=== PATIENT | female | born 1955 | race Caucasian/White ===

== ENCOUNTER 2016-12-15 07:26 | Inpatient (IN) ==
[2016-12-15 12:26] LABS: Basophils % 0.1 %; Hematocrit 40.4 % (35.3-44.9); Hemoglobin 13.4 g/dL (11.5-15.4); Immature Granulocytes % 0.7 % (0-4); Lymphocytes # 0.9 K/mcL (0.6-4.6); Lymphocytes % 5.5 %; Mean Corpuscular HGB Conc 33.2 g/dL (31.6-35.5); Mean Corpuscular Hemoglobin 27.6 pg (28.0-33.3); Mean Corpuscular Volume 83.1 fL (83.0-100.0); Mean Platelet Volume 10.4 fL (9.4-12.4); Monocytes # 0.1 K/mcL (0.0-1.3); Monocytes % 0.5 %; Neutrophils # 14.4 K/mcL (1.6-8.9); Platelet Count 286 K/mcL (140-400); Red Blood Count 4.86 M/mcL (3.82-4.97); Red Cell Distribution Width 12.7 % (11.5-14.5); Segmented Neutrophils % 93.2 %
[2016-12-15 12:33] LABS: INR 1.1; Prothrombin Time 11.8 Seconds (9.4-12.1)
[2016-12-15 12:35] LABS: Activated Partial Thrombo Time 29.4 Seconds (26.0-36.0)
[2016-12-15 12:42] LABS: BUN/Creatinine Ratio 20 (6-26); Blood Urea Nitrogen 21 mg/dL (7-20); Calcium 9.6 mg/dL (8.6-10.8); Carbon Dioxide 22 mEq/L (19-29); Chloride 106 mEq/L (98-109); Chol/HDL Ratio 2.7 (0-4.9); Cholesterol 144 mg/dL (< 200); Glucose 399 mg/dL (70-99); HDL Cholesterol 53 mg/dL (40-59); LDL Cholesterol,Calculated 64 mg/dL (0-99); Osmolality,Calculated 306 (280-300); Potassium 4.1 mEq/L (3.5-4.5); Sodium 138 mEq/L (136-145); Triglycerides 135 mg/dL (< 150); eGFR For African Americans > 60 (> 60); eGFR For Non-African Americans 53 (> 60)
[2016-12-15 12:57] LABS: Hemoglobin A1C 9.9 %
[2016-12-15 14:25] LABS: Bilirubin,Urine Negative (Negative); Blood,Urine Large (Negative); Clarity,Urine Clear (Clear); Color,Urine Yellow (Yellow); Glucose,Urine (UA) >=1000 mg/dL (Normal); Ketones,Urine Negative (Negative); Leukocyte Esterase,Urine Negative (Negative); Nitrite,Urine Negative (Negative); PH,Urine 5.5 pH Units (5.0-8.0); Protein,Urine 100 mg/dL (Neg-Trace); Specific Gravity,Urine > 1.030 (1.010-1.025); Urobilinogen,Urine Normal (Normal)
[2016-12-15 14:27] LABS: Bacteria,Urine None Seen per hpf (None-Few); Hyaline Casts,Urine None Seen per lpf (None-Few); Squamous Epithelial Cell,Urine Many per lpf (None-Few); WBC,Urine 0-3 per hpf (0-3)
[2016-12-16 12:19] LABS: ABG Base Excess 0.5 mEq/L (-2.0 to 3.0); ABG HCO3 24.6 mEQ/L (21-27); ABG Oxygen Saturation 95 % (95-98); ABG PCO2 37 mmHg (35-45); ABG PH 7.43 pH Units (7.32-7.45); ABG PO2 72 mmHg (85-104); ABG TCO2 25.7 mEq/L (20-26); Basophils % 0.2 %; Eosinophils # 0.1 K/mcL (0.0-0.6); Eosinophils % 0.9 %; Hematocrit 34.8 % (35.3-44.9); Hemoglobin 11.9 g/dL (11.5-15.4); Immature Granulocytes % 1.4 % (0-4); Lymphocytes # 2.8 K/mcL (0.6-4.6); Lymphocytes % 18.6 %; Mean Corpuscular HGB Conc 34.2 g/dL (31.6-35.5); Mean Corpuscular Hemoglobin 28.1 pg (28.0-33.3); Mean Corpuscular Volume 82.1 fL (83.0-100.0); Mean Platelet Volume 10.4 fL (9.4-12.4); Monocytes # 0.2 K/mcL (0.0-1.3); Monocytes % 1.4 %; Neutrophils # 11.8 K/mcL (1.6-8.9); Red Blood Count 4.24 M/mcL (3.82-4.97); Red Cell Distribution Width 13.5 % (11.5-14.5); Segmented Neutrophils % 77.5 %
[2016-12-16 12:20] LABS: Blood Gas FiO2 40 %; Platelet Count 87 K/mcL (140-400)
[2016-12-16 12:27] LABS: INR 1.6
[2016-12-16 12:28] LABS: BUN/Creatinine Ratio 33 (6-26); Blood Urea Nitrogen 26 mg/dL (7-20); Calcium 8.3 mg/dL (8.6-10.8); Carbon Dioxide 23 mEq/L (19-29); Chloride 106 mEq/L (98-109); Glucose 139 mg/dL (70-99); Magnesium 2.7 mg/dL (1.6-2.6); Osmolality,Calculated 293 (280-300); Potassium 3.2 mEq/L (3.5-4.5); Prothrombin Time 17.6 Seconds (9.4-12.1); Sodium 138 mEq/L (136-145); eGFR For African Americans > 60 (> 60); eGFR For Non-African Americans > 60 (> 60)
[2016-12-16 12:49] LABS: Platelet Estimate Decreased (Normal)
[2016-12-16 14:41] LABS: ABG PCO2 49 mmHg (35-45); ABG PH 7.37 pH Units (7.32-7.45); ABG PO2 265 mmHg (85-104)
[2016-12-16 14:42] LABS: ABG Base Excess 2.4 mEq/L (-2.0 to 3.0); ABG Glucose 128 mg/dL (60-95); ABG HCO3 28.3 mEQ/L (21-27); ABG Hematocrit 36 % (35-51); ABG Ionized Calcium 1.31 mmol/L (1.15-1.35); ABG Oxygen Saturation 100 % (95-98); ABG TCO2 29.8 mEq/L (20-26)
[2016-12-16 14:43] LABS: ABG PCO2 33 mmHg (35-45); ABG PH 7.45 pH Units (7.32-7.45); ABG PO2 138 mmHg (85-104)
[2016-12-16 14:44] LABS: ABG Base Excess -0.8 mEq/L (-2.0 to 3.0); ABG Glucose 126 mg/dL (60-95); ABG HCO3 22.9 mEQ/L (21-27); ABG Hematocrit 26 % (35-51); ABG Ionized Calcium 1.02 mmol/L (1.15-1.35); ABG Oxygen Saturation 99 % (95-98); ABG TCO2 23.9 mEq/L (20-26)
[2016-12-16 14:46] LABS: ABG Base Excess 5.2 mEq/L (-2.0 to 3.0); ABG Glucose 194 mg/dL (60-95); ABG HCO3 28.4 mEQ/L (21-27); ABG Hematocrit 19 % (35-51); ABG Ionized Calcium 0.95 mmol/L (1.15-1.35); ABG Oxygen Saturation 100 % (95-98); ABG PCO2 34 mmHg (35-45); ABG PH 7.53 pH Units (7.32-7.45); ABG PO2 477 mmHg (85-104); ABG TCO2 29.4 mEq/L (20-26)
[2016-12-16 14:48] LABS: ABG Base Excess 2.9 mEq/L (-2.0 to 3.0); ABG HCO3 25.9 mEQ/L (21-27); ABG PCO2 31 mmHg (35-45); ABG PH 7.53 pH Units (7.32-7.45); ABG PO2 428 mmHg (85-104); ABG TCO2 26.9 mEq/L (20-26)
[2016-12-16 14:49] LABS: ABG Glucose 199 mg/dL (60-95); ABG Hematocrit 18 % (35-51); ABG Ionized Calcium 0.95 mmol/L (1.15-1.35); ABG Oxygen Saturation 100 % (95-98)
[2016-12-16 14:50] LABS: ABG PCO2 36 mmHg (35-45); ABG PH 7.42 pH Units (7.32-7.45); ABG PO2 118 mmHg (85-104)
[2016-12-16 14:51] LABS: ABG Base Excess -0.9 mEq/L (-2.0 to 3.0); ABG Glucose 156 mg/dL (60-95); ABG HCO3 23.4 mEQ/L (21-27); ABG Hematocrit 25 % (35-51); ABG Oxygen Saturation 99 % (95-98); ABG TCO2 24.5 mEq/L (20-26)
[2016-12-16 14:52] LABS: ABG Ionized Calcium 1.29 mmol/L (1.15-1.35)
[2016-12-16 16:21] LABS: Basophils # 0.1 K/mcL (0.0-0.2); Basophils % 0.3 %; Eosinophils % 0.2 %; Hematocrit 37.9 % (35.3-44.9); Hemoglobin 12.9 g/dL (11.5-15.4); Immature Granulocytes % 1.3 % (0-4); Immature Platelets 4.5 % (1.1-6.1); Lymphocytes # 2.4 K/mcL (0.6-4.6); Lymphocytes % 13.5 %; Mean Corpuscular Hemoglobin 27.7 pg (28.0-33.3); Mean Corpuscular Volume 81.3 fL (83.0-100.0); Mean Platelet Volume 10.4 fL (9.4-12.4); Monocytes # 1.3 K/mcL (0.0-1.3); Monocytes % 7.3 %; Neutrophils # 13.6 K/mcL (1.6-8.9); Platelet Count 139 K/mcL (140-400); Red Blood Count 4.66 M/mcL (3.82-4.97); Red Cell Distribution Width 13.8 % (11.5-14.5); Segmented Neutrophils % 77.4 %
[2016-12-16 16:23] LABS: ABG Base Excess 0.8 mEq/L (-2.0 to 3.0); ABG HCO3 25.3 mEQ/L (21-27); ABG Oxygen Saturation 94 % (95-98); ABG PCO2 39 mmHg (35-45); ABG PO2 70 mmHg (85-104); ABG TCO2 26.5 mEq/L (20-26)
[2016-12-16 16:25] LABS: ABG PH 7.42 pH Units (7.32-7.45); Blood Gas FiO2 30 %
[2016-12-16 16:39] LABS: BUN/Creatinine Ratio 30 (6-26); Calcium 8.3 mg/dL (8.6-10.8); Carbon Dioxide 22 mEq/L (19-29); Chloride 106 mEq/L (98-109); Glucose 165 mg/dL (70-99); Magnesium 2.4 mg/dL (1.6-2.6); Osmolality,Calculated 295 (280-300); Potassium 3.6 mEq/L (3.5-4.5); Sodium 138 mEq/L (136-145); eGFR For African Americans > 60 (> 60); eGFR For Non-African Americans > 60 (> 60)
[2016-12-16 16:40] LABS: Blood Urea Nitrogen 27 mg/dL (7-20)
[2016-12-16 20:39] LABS: ABG Base Excess -2.3 mEq/L (-2.0 to 3.0); ABG HCO3 23.7 mEQ/L (21-27); ABG Oxygen Saturation 93 % (95-98); ABG PCO2 45 mmHg (35-45); ABG PH 7.33 pH Units (7.32-7.45); ABG PO2 71 mmHg (85-104); ABG TCO2 25.1 mEq/L (20-26)
[2016-12-16 20:45] LABS: Blood Gas FiO2 30 %
[2016-12-16 23:00] LABS: ABG Base Excess -0.2 mEq/L (-2.0 to 3.0); ABG HCO3 26.3 mEQ/L (21-27); ABG Oxygen Saturation 90 % (95-98); ABG PCO2 51 mmHg (35-45); ABG PH 7.32 pH Units (7.32-7.45); ABG PO2 64 mmHg (85-104); ABG TCO2 27.9 mEq/L (20-26)
[2016-12-16 23:01] LABS: Blood Gas FiO2 28 %
[2016-12-17 07:56] LABS: BUN/Creatinine Ratio 26 (6-26); Blood Urea Nitrogen 24 mg/dL (7-20); Calcium 7.9 mg/dL (8.6-10.8); Carbon Dioxide 21 mEq/L (19-29); Chloride 107 mEq/L (98-109); Glucose 126 mg/dL (70-99); Magnesium 2.1 mg/dL (1.6-2.6); Osmolality,Calculated 294 (280-300); Sodium 139 mEq/L (136-145); eGFR For African Americans > 60 (> 60); eGFR For Non-African Americans > 60 (> 60)
[2016-12-17 08:30] LABS: INR 1.2; Prothrombin Time 12.9 Seconds (9.4-12.1)
[2016-12-17 08:31] LABS: Activated Partial Thrombo Time 24.9 Seconds (26.0-36.0)
[2016-12-17 08:32] LABS: Basophils % 0.1 %; Eosinophils % 0.1 %; Hemoglobin 11.8 g/dL (11.5-15.4); Immature Granulocytes % 0.7 % (0-4); Lymphocytes % 13.8 %; Mean Corpuscular HGB Conc 33.7 g/dL (31.6-35.5); Mean Corpuscular Hemoglobin 28.5 pg (28.0-33.3); Mean Corpuscular Volume 84.5 fL (83.0-100.0); Mean Platelet Volume 10.9 fL (9.4-12.4); Monocytes # 0.9 K/mcL (0.0-1.3); Neutrophils # 9.9 K/mcL (1.6-8.9); Platelet Count 127 K/mcL (140-400); Red Blood Count 4.14 M/mcL (3.82-4.97); Segmented Neutrophils % 78.3 %
[2016-12-17 08:33] LABS: Lymphocytes # 1.8 K/mcL (0.6-4.6)
[2016-12-18 03:27] LABS: BUN/Creatinine Ratio 28 (6-26); Blood Urea Nitrogen 25 mg/dL (7-20); Calcium 8.2 mg/dL (8.6-10.8); Carbon Dioxide 21 mEq/L (19-29); Chloride 107 mEq/L (98-109); Glucose 236 mg/dL (70-99); Osmolality,Calculated 292 (280-300); Sodium 135 mEq/L (136-145); eGFR For African Americans > 60 (> 60); eGFR For Non-African Americans > 60 (> 60)
[2016-12-18 03:31] LABS: Potassium 4.3 mEq/L (3.5-4.5)
[2016-12-18 03:36] LABS: Basophils % 0.2 %; Eosinophils # 0.1 K/mcL (0.0-0.6); Eosinophils % 0.6 %; Hemoglobin 11.4 g/dL (11.5-15.4); Immature Granulocytes % 0.6 % (0-4); Lymphocytes # 1.8 K/mcL (0.6-4.6); Lymphocytes % 13.9 %; Mean Corpuscular HGB Conc 32.6 g/dL (31.6-35.5); Mean Corpuscular Hemoglobin 27.9 pg (28.0-33.3); Mean Corpuscular Volume 85.6 fL (83.0-100.0); Mean Platelet Volume 11.2 fL (9.4-12.4); Monocytes % 7.8 %; Neutrophils # 9.7 K/mcL (1.6-8.9); Platelet Count 114 K/mcL (140-400); Red Blood Count 4.09 M/mcL (3.82-4.97); Red Cell Distribution Width 14.1 % (11.5-14.5); Segmented Neutrophils % 76.9 %
[2016-12-19 04:33] LABS: Basophils % 0.3 %; Eosinophils # 0.2 K/mcL (0.0-0.6); Eosinophils % 1.5 %; Hematocrit 35.2 % (35.3-44.9); Hemoglobin 11.5 g/dL (11.5-15.4); Immature Granulocytes % 0.4 % (0-4); Lymphocytes # 1.7 K/mcL (0.6-4.6); Lymphocytes % 14.5 %; Mean Corpuscular HGB Conc 32.7 g/dL (31.6-35.5); Mean Corpuscular Hemoglobin 27.9 pg (28.0-33.3); Mean Corpuscular Volume 85.4 fL (83.0-100.0); Mean Platelet Volume 11.2 fL (9.4-12.4); Monocytes # 0.9 K/mcL (0.0-1.3); Monocytes % 7.4 %; Neutrophils # 8.7 K/mcL (1.6-8.9); Platelet Count 115 K/mcL (140-400); Red Blood Count 4.12 M/mcL (3.82-4.97); Red Cell Distribution Width 13.4 % (11.5-14.5); Segmented Neutrophils % 75.9 %
[2016-12-19 05:00] LABS: BUN/Creatinine Ratio 24 (6-26); Blood Urea Nitrogen 24 mg/dL (7-20); Calcium 8.6 mg/dL (8.6-10.8); Carbon Dioxide 24 mEq/L (19-29); Chloride 108 mEq/L (98-109); Glucose 109 mg/dL (70-99); Osmolality,Calculated 289 (280-300); Potassium 4.2 mEq/L (3.5-4.5); Sodium 137 mEq/L (136-145); eGFR For African Americans > 60 (> 60); eGFR For Non-African Americans 55 (> 60)
[2016-12-20 01:46] LABS: Basophils % 0.3 %; Eosinophils # 0.3 K/mcL (0.0-0.6); Eosinophils % 2.1 %; Hematocrit 34.9 % (35.3-44.9); Hemoglobin 11.2 g/dL (11.5-15.4); Immature Granulocytes % 0.5 % (0-4); Lymphocytes # 1.2 K/mcL (0.6-4.6); Lymphocytes % 9.6 %; Mean Corpuscular HGB Conc 32.1 g/dL (31.6-35.5); Mean Corpuscular Hemoglobin 27.6 pg (28.0-33.3); Mean Platelet Volume 11.4 fL (9.4-12.4); Monocytes # 0.9 K/mcL (0.0-1.3); Monocytes % 7.8 %; Neutrophils # 9.6 K/mcL (1.6-8.9); Platelet Count 150 K/mcL (140-400); Red Blood Count 4.06 M/mcL (3.82-4.97); Red Cell Distribution Width 13.6 % (11.5-14.5); Segmented Neutrophils % 79.7 %
[2016-12-20 01:59] LABS: Calcium 8.6 mg/dL (8.6-10.8); Potassium 4.6 mEq/L (3.5-4.5)
[2016-12-21 04:21] LABS: Basophils % 0.4 %; Eosinophils # 0.4 K/mcL (0.0-0.6); Eosinophils % 4.4 %; Hematocrit 34.8 % (35.3-44.9); Hemoglobin 11.5 g/dL (11.5-15.4); Immature Granulocytes % 0.6 % (0-4); Lymphocytes # 1.5 K/mcL (0.6-4.6); Lymphocytes % 15.6 %; Mean Corpuscular Hemoglobin 28.3 pg (28.0-33.3); Mean Corpuscular Volume 85.7 fL (83.0-100.0); Mean Platelet Volume 11.2 fL (9.4-12.4); Monocytes # 0.8 K/mcL (0.0-1.3); Monocytes % 8.8 %; Neutrophils # 6.6 K/mcL (1.6-8.9); Platelet Count 183 K/mcL (140-400); Red Blood Count 4.06 M/mcL (3.82-4.97); Red Cell Distribution Width 13.2 % (11.5-14.5); Segmented Neutrophils % 70.2 %
[2016-12-21 04:33] LABS: Calcium 8.9 mg/dL (8.6-10.8); Potassium 4.2 mEq/L (3.5-4.5)
[2016-12-22 05:45] LABS: Hematocrit 37.8 % (35.3-44.9); Hemoglobin 12.5 g/dL (11.5-15.4); Mean Corpuscular HGB Conc 33.1 g/dL (31.6-35.5); Mean Corpuscular Hemoglobin 27.3 pg (28.0-33.3); Mean Corpuscular Volume 82.5 fL (83.0-100.0); Mean Platelet Volume 10.7 fL (9.4-12.4); Platelet Count 242 K/mcL (140-400); Red Blood Count 4.58 M/mcL (3.82-4.97); Red Cell Distribution Width 13.2 % (11.5-14.5)
[2016-12-22 05:56] LABS: BUN/Creatinine Ratio 23 (6-26); Blood Urea Nitrogen 25 mg/dL (7-20); Calcium 9.3 mg/dL (8.6-10.8); Carbon Dioxide 25 mEq/L (19-29); Chloride 99 mEq/L (98-109); Glucose 204 mg/dL (70-99); Osmolality,Calculated 284 (280-300); Potassium 4.3 mEq/L (3.5-4.5); Sodium 132 mEq/L (136-145); eGFR For African Americans > 60 (> 60); eGFR For Non-African Americans 50 (> 60)
[2016-12-23 05:03] LABS: Basophils # 0.1 K/mcL (0.0-0.2); Basophils % 0.6 %; Eosinophils # 0.4 K/mcL (0.0-0.6); Eosinophils % 4.3 %; Hematocrit 34.3 % (35.3-44.9); Hemoglobin 11.5 g/dL (11.5-15.4); Immature Granulocytes % 1.1 % (0-4); Lymphocytes # 1.6 K/mcL (0.6-4.6); Lymphocytes % 15.6 %; Mean Corpuscular HGB Conc 33.5 g/dL (31.6-35.5); Mean Corpuscular Hemoglobin 28.1 pg (28.0-33.3); Mean Corpuscular Volume 83.9 fL (83.0-100.0); Mean Platelet Volume 10.5 fL (9.4-12.4); Monocytes # 0.8 K/mcL (0.0-1.3); Monocytes % 8.2 %; Neutrophils # 7.2 K/mcL (1.6-8.9); Platelet Count 261 K/mcL (140-400); Red Blood Count 4.09 M/mcL (3.82-4.97); Red Cell Distribution Width 13.1 % (11.5-14.5); Segmented Neutrophils % 70.2 %
[2016-12-23 05:11] LABS: BUN/Creatinine Ratio 24 (6-26); Blood Urea Nitrogen 24 mg/dL (7-20); Calcium 8.8 mg/dL (8.6-10.8); Carbon Dioxide 28 mEq/L (19-29); Chloride 101 mEq/L (98-109); Glucose 158 mg/dL (70-99); Osmolality,Calculated 287 (280-300); Potassium 4.3 mEq/L (3.5-4.5); Sodium 135 mEq/L (136-145); eGFR For African Americans > 60 (> 60); eGFR For Non-African Americans 56 (> 60)
[2016-12-24 10:59] VITALS: BP 144/70
== END 2016-12-24 11:14 | DRG 166 ==
LOC: INVDIALAB 07:26 → ICNU 11:46 → 2NNU 12-19 12:12
PROVIDERS: ADMIT Thoracic Surgery (Cardiothoracic Vascular Surgery); ATTEND Thoracic Surgery (Cardiothoracic Vascular Surgery)

== ENCOUNTER 2021-09-12 21:00 | Inpatient (IN) ==
[2021-09-12] MEDS ORDERED: Naloxone 0.4 MG/ML INJ IVP PRN (23:04)
[2021-09-12] MEDS ORDERED: D5% in 0.45% NACL 1,000 ML IVC PRN (23:06)
[2021-09-12] MEDS ORDERED: *HR* Dextrose 50 % in Water (Syg) 50 ML SYRINGE IVP PRN (23:06)
[2021-09-12] MEDS ORDERED: Insulin LISPRO 300 UNITS/3 ML VIAL SUBQ PRN (23:06)
[2021-09-12] MEDS ORDERED: Acetaminophen IV 1,000 MG/100 ML BAG IVPB ONE (23:44)
[2021-09-12] MEDS ORDERED: VANCOMYCIN IVPB SCH (23:45)
[2021-09-12] MEDS ORDERED: SODIUM CHLORIDE 0.9% IVPB SCH (23:45)
[2021-09-13] MEDS ORDERED: Vancomycin 1,250 MG/262.5 ML IV.SOLN IVPB ONE (00:01)
[2021-09-13] MEDS: 0.9 % Sodium Chloride 1,000 ML IVC SCH ×9 (00:34→11:46)
[2021-09-13] MEDS: Piperacillin/Tazobactam 3.375 GM in 0.9 % Sodium Chloride Mini Bag 100 ML IVPB SCH ×4 (00:37→23:34)
[2021-09-13 01:04] LABS: Magnesium 1.8 mg/dL (1.6-2.6); Phosphorous 1.4 mg/dL (2.7-4.5)
[2021-09-13 01:09] LABS: Potassium 3.6 mEq/L (3.5-5.1)
[2021-09-13] MEDS ORDERED: *HR* Heparin 5,000 UNIT/ML VIAL IVP ONE (01:32)
[2021-09-13] MEDS ORDERED: Perflutren Lipid Microsphere 1.3 ML in 0.9 % Sodium Chloride 8.7 ML IVP PRN (01:32)
[2021-09-13] MEDS ORDERED: *HR* Heparin 5,000 UNIT/ML VIAL IVP PRN ×2 (01:32)
[2021-09-13] MEDS: D5% in 0.45% NACL w KCl 20 MEQ/1,000 ML MLS IVC PRN ×2 (01:51→06:12)
[2021-09-13] MEDS ORDERED: Albumin 25% 25gram/100mL 25 GM/100 ML IV.SOLN IVPB ONE (02:12)
[2021-09-13] MEDS ORDERED: 0.9 % Sodium Chloride 500 ML IVC ONE (02:18)
[2021-09-13 03:24] LABS: Basophils % 0.4 %; Eosinophils % 0.1 %; Hematocrit 24.3 % (35.3-44.9); Hemoglobin 7.7 g/dL (11.5-15.4); Immature Granulocytes % 0.4 % (0-4); Lymphocytes # 0.7 K/mcL (0.6-4.6); Lymphocytes % 7.9 %; Mean Corpuscular HGB Conc 31.7 g/dL (31.6-35.5); Mean Corpuscular Hemoglobin 25.9 pg (28.0-33.3); Mean Corpuscular Volume 81.8 fL (83.0-100.0); Mean Platelet Volume 12.1 fL (9.4-12.4); Monocytes # 0.7 K/mcL (0.0-1.3); Monocytes % 8.2 %; Neutrophils # 7.1 K/mcL (1.6-8.9); Platelet Count 164 K/mcL (140-400); Red Blood Count 2.97 M/mcL (3.82-4.97); Red Cell Distribution Width 13.8 % (11.5-14.5); White Blood Count 8.6 K/mcL (4.3-11.1)
[2021-09-13 03:36] LABS: Alanine Aminotransferase 8 Units/L (7-52); Albumin 2.5 g/dL (3.5-5.7); Albumin/Globulin Ratio 0.9 (1.1-2.2); Alkaline Phosphatase 76 Units/L (34-104); Aspartate Amino Transferase 12 Units/L (13-39); Bilirubin,Direct 0.1 mg/dL (0.0-0.2); Bilirubin,Indirect 0.2 mg/dL (0.0-1.0); Bilirubin,Total 0.3 mg/dL (0.3-1.0); Globulin 2.8 g/dL (2.4-3.5); Total Protein 5.3 g/dL (6.4-8.9)
[2021-09-13 04:50] LABS: VBG Ionized Calcium 1.14 mmol/L (1.15-1.35)
[2021-09-13 04:59] LABS: INR 1.2; Prothrombin Time 13.4 Seconds (9.4-12.1)
[2021-09-13 05:12] LABS: Calcium 7.8 mg/dL (8.6-10.3); Potassium 3.8 mEq/L (3.5-5.1)
[2021-09-13] MEDS: Heparin 25,000UNIT/250ML 1/2NS 25,000 UNIT/250 ML IV.SOLN IVC SCH (05:22)
[2021-09-13 06:32] LABS: Folate 7.1 ng/mL (3.0-16.0)
[2021-09-13 06:33] LABS: Ferritin 221 ng/mL (10-120); Iron < 10 mcg/dL (50-170)
[2021-09-13] MEDS ORDERED: *HR* Dextrose 50 % in Water (Syg) 50 ML SYRINGE IVP PRN (07:35)
[2021-09-13] MEDS ORDERED: Dextrose Gel 15 GM/37.5 ML TUBE PO PRN ×2 (07:35)
[2021-09-13] MEDS ORDERED: Insulin DETEMIR 100 UNIT/ML X5UNITS SUBQ ONE (07:35)
[2021-09-13] MEDS ORDERED: D5% in Water 1,000 ML IVC PRN (07:35)
[2021-09-13] MEDS ORDERED: Calcium Gluconate 1gm/50mL 1 GM/50 ML BAG IVPB ONE (07:41)
[2021-09-13] MEDS: Insulin LISPRO 300 UNITS/3 ML VIAL SUBQ SCH ×5 (08:20→16:17)
[2021-09-13] MEDS ORDERED: cefTRIAXone 1,000 MG in Water for inj. (sterile) 10 ML IVP SCH (09:00)
[2021-09-13] MEDS: Albumin 25% 25gram/100mL 25 GM/100 ML IV.SOLN IVPB SCH ×2 (11:31→16:18)
[2021-09-13] MEDS ORDERED: 0.9 % Sodium Chloride 1,000 ML IVC SCH (13:00)
[2021-09-13] MEDS ORDERED: Acetaminophen 325 MG TABLET PO PRN (18:57)
[2021-09-13] MEDS: Insulin DETEMIR 100 UNIT/ML X5UNITS SUBQ SCH (20:19)
[2021-09-14 00:37] LABS: Hemoglobin 7.5 g/dL (11.5-15.4); Mean Corpuscular HGB Conc 31.3 g/dL (31.6-35.5); Mean Corpuscular Hemoglobin 26.6 pg (28.0-33.3); Mean Corpuscular Volume 85.1 fL (83.0-100.0); Mean Platelet Volume 11.9 fL (9.4-12.4); Platelet Count 167 K/mcL (140-400); Red Blood Count 2.82 M/mcL (3.82-4.97); Red Cell Distribution Width 14.6 % (11.5-14.5); White Blood Count 7.2 K/mcL (4.3-11.1)
[2021-09-14 01:01] LABS: Calcium 7.4 mg/dL (8.6-10.3); Potassium 4.7 mEq/L (3.5-5.1)
[2021-09-14 01:11] LABS: Troponin I 0.7 ng/mL (< 0.04)
[2021-09-14] MEDS: Albumin 25% 25gram/100mL 25 GM/100 ML IV.SOLN IVPB SCH ×3 (03:22→18:12)
[2021-09-14] MEDS: Heparin 25,000UNIT/250ML 1/2NS 25,000 UNIT/250 ML IV.SOLN IVC SCH ×2 (03:25→08:41)
[2021-09-14] MEDS ORDERED: Calcium Gluconate 1gm/50mL 1 GM/50 ML BAG IVPB ONE (07:17)
[2021-09-14] MEDS: Insulin LISPRO 300 UNITS/3 ML VIAL SUBQ SCH ×6 (08:25→17:00)
[2021-09-14] MEDS: Piperacillin/Tazobactam 3.375 GM in 0.9 % Sodium Chloride Mini Bag 100 ML IVPB SCH ×2 (08:39→15:59)
[2021-09-14 10:36] LABS: Bilirubin,Urine Negative (Negative); Blood,Urine Large (Negative); Budding Yeast,Urine Many per hpf (None Seen); Clarity,Urine Turbid (Clear); Color,Urine Yellow (Yellow); Glucose,Urine (UA) 300 mg/dL (Normal); Granular Casts,Urine Few per lpf (None Seen); Ketones,Urine Negative (Negative); Leukocyte Esterase,Urine Large (Negative); Nitrite,Urine Negative (Negative); Protein,Urine 200 mg/dL (Neg-Trace); Specific Gravity,Urine 1.016 (1.010-1.025); Squamous Epithelial Cell,Urine Few per hpf (None-Few); Urobilinogen,Urine Normal (Normal); WBC,Urine 50-100 per hpf (0-3)
[2021-09-14] MEDS: Insulin DETEMIR 100 UNIT/ML X5UNITS SUBQ SCH (20:15)
[2021-09-15] MEDS: Albumin 25% 25gram/100mL 25 GM/100 ML IV.SOLN IVPB SCH ×3 (02:14→17:51)
[2021-09-15 02:23] LABS: Hematocrit 23.6 % (35.3-44.9); Hemoglobin 7.2 g/dL (11.5-15.4); Mean Corpuscular HGB Conc 30.5 g/dL (31.6-35.5); Mean Corpuscular Hemoglobin 25.7 pg (28.0-33.3); Mean Corpuscular Volume 84.3 fL (83.0-100.0); Platelet Count 169 K/mcL (140-400); Red Cell Distribution Width 15.2 % (11.5-14.5); White Blood Count 8.4 K/mcL (4.3-11.1)
[2021-09-15 02:27] LABS: Calcium 8.1 mg/dL (8.6-10.3)
[2021-09-15] MEDS ORDERED: Piperacillin/Tazobactam 3.375 GM in 0.9 % Sodium Chloride Mini Bag 100 ML IVPB SCH (04:00)
[2021-09-15] MEDS ORDERED: 0.9 % Sodium Chloride 1,000 ML ONE (08:12)
[2021-09-15] MEDS: Insulin LISPRO 300 UNITS/3 ML VIAL SUBQ SCH ×6 (08:14→16:19)
[2021-09-15] MEDS ORDERED: Nitroglycerin 0.4 MG TAB.SUBL SL PRN (08:26)
[2021-09-15] MEDS: 0.9 % Sodium Chloride 1,000 ML IVC SCH ×2 (08:48→19:43)
[2021-09-15] MEDS: Aspirin 81 MG TAB.CHEW PO SCH (10:47)
[2021-09-15] MEDS ORDERED: D5% in Water 1,000 ML IVC PRN (13:36)
[2021-09-15] MEDS ORDERED: cefTRIAXone 1,000 MG in 0.9 % Sodium Chloride Mini Bag 100 ML IVPB SCH (16:00)
[2021-09-15] MEDS: carvediloL 6.25 MG TABLET PO SCH (16:18)
[2021-09-15] MEDS: Insulin DETEMIR 100 UNIT/ML X5UNITS SUBQ SCH (21:43)
[2021-09-15] MEDS: *HR* Heparin 5,000 UNIT/ML VIAL SQ SCH (21:44)
[2021-09-15] MEDS: Ondansetron 4 MG/2 ML VIAL IVP PRN (23:05)
[2021-09-16] MEDS: Albumin 25% 25gram/100mL 25 GM/100 ML IV.SOLN IVPB SCH ×3 (02:11→18:09)
[2021-09-16] MEDS: Ondansetron 4 MG/2 ML VIAL IVP PRN ×2 (04:56→18:07)
[2021-09-16] MEDS: *HR* Heparin 5,000 UNIT/ML VIAL SQ SCH ×3 (05:18→21:00)
[2021-09-16] MEDS: 0.9 % Sodium Chloride 1,000 ML IVC SCH ×2 (06:29→18:09)
[2021-09-16 09:19] LABS: Hematocrit 25.1 % (35.3-44.9); Hemoglobin 8.1 g/dL (11.5-15.4); Mean Corpuscular HGB Conc 32.3 g/dL (31.6-35.5); Mean Corpuscular Hemoglobin 26.2 pg (28.0-33.3); Mean Corpuscular Volume 81.2 fL (83.0-100.0); Mean Platelet Volume 11.9 fL (9.4-12.4); Platelet Count 178 K/mcL (140-400); Red Blood Count 3.09 M/mcL (3.82-4.97); Red Cell Distribution Width 15.2 % (11.5-14.5)
[2021-09-16 09:30] LABS: Albumin 3.8 g/dL (3.5-5.7); Albumin/Globulin Ratio 1.6 (1.1-2.2); Bilirubin,Direct 0.1 mg/dL (0.0-0.2); Bilirubin,Indirect 0.3 mg/dL (0.0-1.0); Bilirubin,Total 0.4 mg/dL (0.3-1.0); Calcium 8.6 mg/dL (8.6-10.3); Globulin 2.4 g/dL (2.4-3.5); Potassium 5.6 mEq/L (3.5-5.1); Total Protein 6.2 g/dL (6.4-8.9)
[2021-09-16] MEDS: Aspirin 81 MG TAB.CHEW PO SCH (09:39)
[2021-09-16] MEDS: carvediloL 6.25 MG TABLET PO SCH ×2 (09:39→17:20)
[2021-09-16] MEDS: Insulin LISPRO 300 UNITS/3 ML VIAL SUBQ SCH ×5 (09:40→18:10)
[2021-09-16] MEDS: *HR* Promethazine 25 MG/ML VIAL IM PRN (10:38)
[2021-09-16] MEDS: Pantoprazole 40 MG VIAL IVP SCH ×2 (12:02→18:07)
[2021-09-16] MEDS ORDERED: *HR* Heparin 10,000 UNIT/10 ML VIAL IV PRN (12:48)
[2021-09-16] MEDS ORDERED: 0.9 % Sodium Chloride 250 ML IVC PRN (12:48)
[2021-09-16 13:50] LABS: Transferrin 120 mg/dL (200-400)
[2021-09-16] MEDS ORDERED: Acetaminophen 325 MG TABLET PO PRN (14:02)
[2021-09-16 14:45] LABS: Hepatitis B Surface Antibody < 3.10 mIU/mL
[2021-09-16 14:56] LABS: Hepatitis B Surface Antigen Nonreactive (Nonreactive)
[2021-09-16] MEDS ORDERED: *HR* Heparin 5,000 UNIT/ML VIAL ONE (15:15)
[2021-09-16] MEDS ORDERED: MetroNIDAZOLE 500 MG/100 ML 500 MG/100 ML BAG IVPB SCH (16:00)
[2021-09-16] MEDS: Piperacillin/Tazobactam 3.375 GM in 0.9 % Sodium Chloride Mini Bag 100 ML IVPB SCH (18:08)
[2021-09-16] MEDS: Insulin DETEMIR 100 UNIT/ML X5UNITS SUBQ SCH (21:00)
[2021-09-17] MEDS: Insulin LISPRO 300 UNITS/3 ML VIAL SUBQ SCH ×5 (00:38→22:10)
[2021-09-17] MEDS: 0.9 % Sodium Chloride 1,000 ML IVC SCH ×4 (00:39→22:10)
[2021-09-17] MEDS: Albumin 25% 25gram/100mL 25 GM/100 ML IV.SOLN IVPB SCH ×2 (02:20→10:07)
[2021-09-17 03:42] LABS: Hematocrit 20.8 % (35.3-44.9); Hemoglobin 6.9 g/dL (11.5-15.4); Mean Corpuscular HGB Conc 33.2 g/dL (31.6-35.5); Mean Corpuscular Hemoglobin 26.6 pg (28.0-33.3); Mean Corpuscular Volume 80.3 fL (83.0-100.0); Mean Platelet Volume 10.8 fL (9.4-12.4); Platelet Count 216 K/mcL (140-400); Red Blood Count 2.59 M/mcL (3.82-4.97); Red Cell Distribution Width 15.4 % (11.5-14.5); White Blood Count 8.9 K/mcL (4.3-11.1)
[2021-09-17] MEDS: Piperacillin/Tazobactam 3.375 GM in 0.9 % Sodium Chloride Mini Bag 100 ML IVPB SCH (04:21)
[2021-09-17 04:26] LABS: Calcium 8.6 mg/dL (8.6-10.3); Potassium 3.9 mEq/L (3.5-5.1)
[2021-09-17] MEDS: *HR* Heparin 5,000 UNIT/ML VIAL SQ SCH ×3 (06:35→21:58)
[2021-09-17] MEDS: Pantoprazole 40 MG VIAL IVP SCH (06:35)
[2021-09-17] MEDS: *HR* Promethazine 25 MG/ML VIAL IM PRN (06:48)
[2021-09-17] MEDS ORDERED: 0.9 % Sodium Chloride 250 ML IVC SCH (07:30)
[2021-09-17] MEDS ORDERED: 0.9 % Sodium Chloride 250 ML ONE (09:37)
[2021-09-17] MEDS: Aspirin 81 MG TAB.CHEW PO SCH (10:07)
[2021-09-17] MEDS: carvediloL 6.25 MG TABLET PO SCH ×2 (10:13→16:53)
[2021-09-17 16:18] LABS: Hematocrit 24.7 % (35.3-44.9); Hemoglobin 7.8 g/dL (11.5-15.4)
[2021-09-17] MEDS: Amoxicillin/Clavulanate 500 MG TABLET PO SCH (16:36)
[2021-09-17] MEDS: Insulin DETEMIR 100 UNIT/ML X5UNITS SUBQ SCH (22:20)
[2021-09-18 03:51] LABS: Lambda Qnt Free Light Chains 99.54 mg/L (5.71-26.30)
[2021-09-18 04:05] LABS: Hematocrit 24.6 % (35.3-44.9); Hemoglobin 8.1 g/dL (11.5-15.4); Mean Corpuscular HGB Conc 32.9 g/dL (31.6-35.5); Mean Corpuscular Hemoglobin 27.4 pg (28.0-33.3); Mean Corpuscular Volume 83.1 fL (83.0-100.0); Platelet Count 259 K/mcL (140-400); Red Blood Count 2.96 M/mcL (3.82-4.97); Red Cell Distribution Width 15.7 % (11.5-14.5); White Blood Count 9.2 K/mcL (4.3-11.1)
[2021-09-18 04:09] LABS: Calcium 8.7 mg/dL (8.6-10.3); Potassium 4.1 mEq/L (3.5-5.1)
[2021-09-18] MEDS: 0.9 % Sodium Chloride 1,000 ML IVC SCH ×2 (05:28→12:04)
[2021-09-18] MEDS: *HR* Heparin 5,000 UNIT/ML VIAL SQ SCH ×3 (06:31→21:03)
[2021-09-18 07:25] LABS: Kappa Qnt Free Light Chains 80.04 mg/L (3.30-19.40)
[2021-09-18] MEDS: Insulin LISPRO 300 UNITS/3 ML VIAL SUBQ SCH ×4 (08:19→21:02)
[2021-09-18] MEDS: Amoxicillin/Clavulanate 500 MG TABLET PO SCH ×2 (08:20→15:50)
[2021-09-18] MEDS: carvediloL 6.25 MG TABLET PO SCH ×2 (08:20→15:51)
[2021-09-18] MEDS: amLODIPine 5 MG TABLET PO SCH (08:21)
[2021-09-18] MEDS: Aspirin 81 MG TAB.CHEW PO SCH (08:21)
[2021-09-18] MEDS: Sennosides/Docusate Sodium TABLET PO SCH ×2 (11:25→21:03)
[2021-09-18 14:51] LABS: ANA IgG by ELISA NONE DETECTED (None Detected)
[2021-09-18] MEDS: Insulin DETEMIR 100 UNIT/ML X5UNITS SUBQ SCH (21:03)
[2021-09-19] MEDS: 0.9 % Sodium Chloride 1,000 ML IVC SCH ×2 (02:09→12:23)
[2021-09-19] MEDS: *HR* Heparin 5,000 UNIT/ML VIAL SQ SCH ×3 (04:52→20:48)
[2021-09-19 05:45] LABS: Hematocrit 26.3 % (35.3-44.9); Hemoglobin 8.2 g/dL (11.5-15.4); Mean Corpuscular HGB Conc 31.2 g/dL (31.6-35.5); Mean Corpuscular Hemoglobin 26.6 pg (28.0-33.3); Mean Corpuscular Volume 85.4 fL (83.0-100.0); Platelet Count 269 K/mcL (140-400); Red Blood Count 3.08 M/mcL (3.82-4.97); Red Cell Distribution Width 15.8 % (11.5-14.5)
[2021-09-19 06:06] LABS: Calcium 8.4 mg/dL (8.6-10.3); Potassium 3.9 mEq/L (3.5-5.1)
[2021-09-19] MEDS: Insulin LISPRO 300 UNITS/3 ML VIAL SUBQ SCH ×4 (08:14→20:49)
[2021-09-19] MEDS: Aspirin 81 MG TAB.CHEW PO SCH (08:15)
[2021-09-19] MEDS: Amoxicillin/Clavulanate 500 MG TABLET PO SCH (08:16)
[2021-09-19] MEDS: carvediloL 6.25 MG TABLET PO SCH ×2 (08:16→17:09)
[2021-09-19] MEDS: amLODIPine 5 MG TABLET PO SCH (08:16)
[2021-09-19] MEDS: Sennosides/Docusate Sodium TABLET PO SCH ×2 (08:16→20:47)
[2021-09-19] MEDS ORDERED: Amoxicillin/Clavulanate 500 MG TABLET PO SCH (17:00)
[2021-09-19] MEDS: Insulin DETEMIR 100 UNIT/ML X5UNITS SUBQ SCH (20:48)
[2021-09-20] MEDS: *HR* Heparin 5,000 UNIT/ML VIAL SQ SCH ×3 (05:07→20:28)
[2021-09-20 05:57] LABS: Calcium 8.5 mg/dL (8.6-10.3); Potassium 3.9 mEq/L (3.5-5.1)
[2021-09-20 06:47] LABS: Hepatitis B Surface Antigen Nonreactive (Nonreactive)
[2021-09-20 07:15] LABS: Hepatitis B Core IgM Nonreactive (Nonreactive)
[2021-09-20 07:16] LABS: Hepatitis C Virus Antibody Nonreactive (Nonreactive)
[2021-09-20 07:17] LABS: Hepatitis A Antibody IgM Nonreactive (Nonreactive)
[2021-09-20] MEDS ORDERED: *HR* Heparin 10,000 UNIT/10 ML VIAL IV PRN ×2 (08:07→08:22)
[2021-09-20] MEDS ORDERED: 0.9 % Sodium Chloride 250 ML IVC PRN ×2 (08:07→08:22)
[2021-09-20] MEDS ORDERED: 0.9 % Sodium Chloride 1,000 ML PRIME SCH ×2 (08:15→08:30)
[2021-09-20] MEDS: Aspirin 81 MG TAB.CHEW PO SCH (08:27)
[2021-09-20] MEDS: carvediloL 6.25 MG TABLET PO SCH ×2 (08:27→16:40)
[2021-09-20] MEDS: Sennosides/Docusate Sodium TABLET PO SCH ×2 (08:28→20:29)
[2021-09-20] MEDS: amLODIPine 5 MG TABLET PO SCH (08:28)
[2021-09-20] MEDS: Insulin LISPRO 300 UNITS/3 ML VIAL SUBQ SCH ×4 (08:28→20:30)
[2021-09-20] MEDS: Melatonin 3 MG TABLET PO PRN (20:29)
[2021-09-20] MEDS: Insulin DETEMIR 100 UNIT/ML X5UNITS SUBQ SCH (20:31)
[2021-09-21] MEDS: *HR* Heparin 5,000 UNIT/ML VIAL SQ SCH ×3 (05:16→20:15)
[2021-09-21 06:20] LABS: Calcium 8.4 mg/dL (8.6-10.3); Potassium 3.7 mEq/L (3.5-5.1)
[2021-09-21] MEDS: amLODIPine 5 MG TABLET PO SCH (07:57)
[2021-09-21] MEDS: Insulin LISPRO 300 UNITS/3 ML VIAL SUBQ SCH ×4 (07:58→20:16)
[2021-09-21] MEDS: Aspirin 81 MG TAB.CHEW PO SCH (07:58)
[2021-09-21] MEDS: carvediloL 6.25 MG TABLET PO SCH ×2 (07:58→16:18)
[2021-09-21] MEDS: Sennosides/Docusate Sodium TABLET PO SCH ×2 (07:58→20:15)
[2021-09-21 08:55] LABS: Basophils # 0.1 K/mcL (0.0-0.2); Basophils % 0.5 %; Eosinophils # 0.3 K/mcL (0.0-0.6); Eosinophils % 2.7 %; Hematocrit 31.3 % (35.3-44.9); Immature Granulocytes % 2.7 % (0-4); Lymphocytes # 1.3 K/mcL (0.6-4.6); Lymphocytes % 11.3 %; Mean Corpuscular HGB Conc 31.9 g/dL (31.6-35.5); Mean Corpuscular Hemoglobin 27.2 pg (28.0-33.3); Mean Corpuscular Volume 85.3 fL (83.0-100.0); Mean Platelet Volume 10.6 fL (9.4-12.4); Monocytes # 0.7 K/mcL (0.0-1.3); Monocytes % 5.9 %; Neutrophils # 8.9 K/mcL (1.6-8.9); Platelet Count 362 K/mcL (140-400); Red Blood Count 3.67 M/mcL (3.82-4.97); Segmented Neutrophils % 76.9 %; White Blood Count 11.6 K/mcL (4.3-11.1)
[2021-09-21] MEDS: Melatonin 3 MG TABLET PO PRN (20:16)
[2021-09-21] MEDS: Insulin DETEMIR 100 UNIT/ML X5UNITS SUBQ SCH (20:16)
[2021-09-22] MEDS: *HR* Heparin 5,000 UNIT/ML VIAL SQ SCH ×3 (04:27→20:35)
[2021-09-22 05:18] LABS: Calcium 8.5 mg/dL (8.6-10.3); Potassium 3.9 mEq/L (3.5-5.1)
[2021-09-22] MEDS: Sennosides/Docusate Sodium TABLET PO SCH ×2 (07:27→20:35)
[2021-09-22] MEDS: Aspirin 81 MG TAB.CHEW PO SCH (07:27)
[2021-09-22] MEDS: Insulin LISPRO 300 UNITS/3 ML VIAL SUBQ SCH ×4 (07:28→20:36)
[2021-09-22] MEDS: amLODIPine 5 MG TABLET PO SCH (07:33)
[2021-09-22] MEDS: carvediloL 6.25 MG TABLET PO SCH ×2 (07:33→16:39)
[2021-09-22] MEDS ORDERED: *HR* Heparin 10,000 UNIT/10 ML VIAL IV PRN (07:58)
[2021-09-22] MEDS ORDERED: 0.9 % Sodium Chloride 250 ML IVC PRN (07:58)
[2021-09-22 08:44] LABS: Alpha 2 Globulin (PEP) 0.81 g/dL (0.48-1.05); Beta Globulin (PEP) 0.47 g/dL (0.48-1.10)
[2021-09-22 08:47] LABS: ANCA IFA Titer <1:20 (<1:20)
[2021-09-22] MEDS ORDERED: Heparin 1,000 UNITS/500 mL 500 ML ONE (08:50)
[2021-09-22] MEDS ORDERED: Lidocaine/EPI 1:100k 1% 50 ML VIAL ONE (08:50)
[2021-09-22] MEDS ORDERED: *HR* FentaNYL (PF) 100 MCG/2 ML VIAL IVP ONE (08:59)
[2021-09-22] MEDS ORDERED: *HR* Midazolam HCl 2 MG/2 ML VIAL IVP ONE (08:59)
[2021-09-22] MEDS ORDERED: *HR* FentaNYL (PF) 100 MCG/2 ML VIAL ONE (09:11)
[2021-09-22] MEDS ORDERED: 0.9 % Sodium Chloride 500 ML ONE (09:11)
[2021-09-22] MEDS ORDERED: *HR* Heparin 5,000 UNIT/ML VIAL ONE (09:28)
[2021-09-22] MEDS: ceFAZolin 1,000 MG in 0.9 % Sodium Chloride 100 ML IVPB SCH ×2 (09:34→09:46)
[2021-09-22 09:52] LABS: IFE Reflexed NOT DONE
[2021-09-22 09:53] LABS: ANCA IFA Pattern NONE DETECTED (None Detected); Serine Protease-3 Antibody 0 AU/mL (0-19)
[2021-09-22] MEDS: Ondansetron 4 MG/2 ML VIAL IVP PRN (11:02)
[2021-09-22] MEDS: Insulin DETEMIR 100 UNIT/ML X5UNITS SUBQ SCH (20:36)
[2021-09-22] MEDS: Melatonin 3 MG TABLET PO PRN (20:45)
[2021-09-23 03:39] LABS: Potassium 3.7 mEq/L (3.5-5.1)
[2021-09-23] MEDS ORDERED: Ipratropium/Albuterol Neb 3 ML IH PRN (03:50)
[2021-09-23] MEDS: *HR* Heparin 5,000 UNIT/ML VIAL SQ SCH ×3 (06:05→19:45)
[2021-09-23] MEDS: Sennosides/Docusate Sodium TABLET PO SCH ×2 (08:55→19:44)
[2021-09-23] MEDS: Aspirin 81 MG TAB.CHEW PO SCH (08:55)
[2021-09-23] MEDS: carvediloL 6.25 MG TABLET PO SCH ×2 (08:56→16:09)
[2021-09-23] MEDS: amLODIPine 5 MG TABLET PO SCH (08:56)
[2021-09-23] MEDS: ceFAZolin 1,000 MG in 0.9 % Sodium Chloride 100 ML IVPB SCH (08:56)
[2021-09-23] MEDS: Insulin LISPRO 300 UNITS/3 ML VIAL SUBQ SCH ×4 (09:02→19:44)
[2021-09-23] MEDS: Insulin DETEMIR 100 UNIT/ML X5UNITS SUBQ SCH (19:44)
[2021-09-23] MEDS: Melatonin 3 MG TABLET PO PRN (23:12)
[2021-09-24 03:17] LABS: Hematocrit 23.7 % (35.3-44.9); Mean Corpuscular HGB Conc 32.1 g/dL (31.6-35.5); Mean Corpuscular Hemoglobin 27.3 pg (28.0-33.3); Mean Corpuscular Volume 85.3 fL (83.0-100.0); Mean Platelet Volume 10.5 fL (9.4-12.4); Platelet Count 212 K/mcL (140-400); Red Blood Count 2.78 M/mcL (3.82-4.97); Red Cell Distribution Width 15.3 % (11.5-14.5); White Blood Count 9.6 K/mcL (4.3-11.1)
[2021-09-24 03:18] LABS: Hemoglobin 7.6 g/dL (11.5-15.4)
[2021-09-24 03:41] LABS: Calcium 8.2 mg/dL (8.6-10.3); Potassium 3.3 mEq/L (3.5-5.1)
[2021-09-24] MEDS: *HR* Heparin 5,000 UNIT/ML VIAL SQ SCH ×2 (05:58→15:46)
[2021-09-24] MEDS ORDERED: 0.9 % Sodium Chloride 250 ML IVC PRN (08:31)
[2021-09-24] MEDS ORDERED: *HR* Heparin 10,000 UNIT/10 ML VIAL IV PRN (08:31)
[2021-09-24] MEDS ORDERED: 0.9 % Sodium Chloride 1,000 ML PRIME SCH (08:45)
[2021-09-24] MEDS: Sennosides/Docusate Sodium TABLET PO SCH (09:20)
[2021-09-24] MEDS: Aspirin 81 MG TAB.CHEW PO SCH (09:21)
[2021-09-24] MEDS: Insulin LISPRO 300 UNITS/3 ML VIAL SUBQ SCH ×3 (09:29→15:45)
[2021-09-24] MEDS: carvediloL 6.25 MG TABLET PO SCH ×2 (13:32→15:44)
[2021-09-24 15:44] VITALS: BP 167/62; PULSE 96; TEMP 98.5; O2SAT 90
[2021-09-24] MEDS: amLODIPine 5 MG TABLET PO SCH (15:44)
== END 2021-09-24 16:54 | disposition home health service (06) | DRG 871 ==
LOC: 2NNU → SUATTDRO 09-13 00:18 → 2ANU 09-13 19:52
PROVIDERS: ADMIT Student in an Organized Health Care Education/Training Program; ATTEND Family Medicine
PROC: IRPERMA (2021-09-22 12:00)